=== PATIENT | female | born 1945 | race Caucasian/White ===

== ENCOUNTER → 2023-06-13 09:48 | Outpatient (REF) | payer OTHER, SELFPAY | LOC: HWWDC 09:48 | PROVIDERS: ATTENDING PHYSICIAN Family Medicine | DX: Z12.31 Encounter for screening mammogram for malignant neoplasm of breast (principal) | CPT/HCPCS: 77063; 77067 ==

== ENCOUNTER → 2023-09-27 06:27 | Day surgery (SDC) | payer OTHER, SELFPAY | LOC: GI 06:27 | PROVIDERS: ATTENDING PHYSICIAN Internal Medicine Gastroenterology; FAMILY PHYSICIAN Family Medicine | DX: Z86.010 Personal history of colon polyps (principal); D17.79 Benign lipomatous neoplasm of other sites; K64.8 Other hemorrhoids; K55.20 Angiodysplasia of colon without hemorrhage; K62.1 Rectal polyp; D12.3 Benign neoplasm of transverse colon | CPT/HCPCS: 45385; 45380; 45382; 88305 ==

== ENCOUNTER → 2023-10-01 08:55 | Outpatient (REF) | payer OTHER, SELFPAY | LOC: HWRAD 08:55 | PROVIDERS: ATTENDING PHYSICIAN Internal Medicine Gastroenterology; FAMILY PHYSICIAN Family Medicine | DX: K76.0 Fatty (change of) liver, not elsewhere classified (principal) | CPT/HCPCS: 76700 ==

== ENCOUNTER → 2024-07-17 15:50 | Outpatient (REF) | payer OTHER, SELFPAY | LOC: HWRAD 15:50 | DX: J20.9 Acute bronchitis, unspecified (principal) | CPT/HCPCS: 71046 ==

== ENCOUNTER → 2024-08-14 09:29 | Outpatient (REF) | payer OTHER, SELFPAY | LOC: HWRAD 09:29 | PROVIDERS: ATTENDING PHYSICIAN Internal Medicine Gastroenterology; FAMILY PHYSICIAN Family Medicine | DX: K76.0 Fatty (change of) liver, not elsewhere classified (principal) | CPT/HCPCS: 76700 ==

== ENCOUNTER → 2024-09-01 14:19 | Outpatient (REF) | payer OTHER, SELFPAY | LOC: HWWDC 14:19 | PROVIDERS: ATTENDING PHYSICIAN Family Medicine | DX: Z12.31 Encounter for screening mammogram for malignant neoplasm of breast (principal) | CPT/HCPCS: 77063; 77067 ==

== ENCOUNTER 2025-04-02 06:21 | Day surgery (SDC) | payer OTHER, SELFPAY | END 2025-04-02 13:51 | disposition home or self-care (01) | LOC: GI 06:21 | PROVIDERS: ATTENDING PHYSICIAN Internal Medicine Gastroenterology | DX: K22.89 Other specified disease of esophagus (principal); Q39.9 Congenital malformation of esophagus, unspecified; K44.9 Diaphragmatic hernia without obstruction or gangrene; Z87.19 Personal history of other diseases of the digestive system; K22.70 Barrett's esophagus without dysplasia | CPT/HCPCS: 43239; 88305 ==